=== PATIENT | female | born 1985 | race Caucasian/White ===

== ENCOUNTER 2019-03-26 13:57 | Emergency (ER) | payer OTHER, SELFPAY ==
[2019-03-26 14:02] VITALS: BP 120/70; PULSE 93; RESP 20; TEMP 36.6; O2SAT 99
--- NOTE | 2019-03-26 14:11 | ED.GENADULT ---
HPI - General Adult General Chief complaint: Upper Respiratory Infection Stated complaint: COUGH/SOB Time Seen by Provider: 03/26/19 14:13 Source: patient Mode of arrival: ambulatory Limitations: no limitations History of Present Illness HPI narrative: 33-year-old female patient presents to the [facility] with complaints of cold symptoms for the past week. Patient states that she was swabbed tested positive for influenza early last week. Patient states that she is now having chronic cough, coughing up sputum at times as well as some shortness of breath. Patient states she has tried taking [id number] Delsym which has helped with the cough at times. Related Data Home Medications Medication Instructions Recorded Confirmed dextromethorphan polistirex 10 ml PO Q12H PRN 03/26/19 03/26/19 [Delsym 12 hour] Allergies Allergy/AdvReac Type Severity Reaction Status Date / Time Sulfa (Sulfonamide Allergy Unknown Hives Verified 03/26/19 14:09 Antibiotics) Bumble Bee Allergy Unknown Swelling Uncoded 03/26/19 14:09 of Lip/Tongue/Throat Review of Systems Review of Systems: Narrative: CONSTITUTIONAL: Denies fever, chills, or sweats. EYES: Denies visual changes, redness, or discharge. ENT: Denies rhinorrhea, congestion, sore throat, or otalgia. CARDIOVASCULAR: Denies chest pain, palpitations, or edema. RESPIRATORY: Positive cough with dyspnea. GASTROINTESTINAL: Denies abdominal pain, nausea, vomiting, or diarrhea. GENITOURINARY: Denies dysuria or hematuria. SKIN: Denies rash or itching. MUSCULOSKELETAL: Denies back pain, joint pain, or myalgia. NEUROLOGIC: Denies headache, numbness, or weakness. PSYCHIATRIC: Denies anxiety or depression. [facility] Family History Family History Sibling Asthma Family history of arthritis Mother Family history of arthritis Social History Social History Smoking status: Never smoker Alcohol intake: current Comments At the time of my signature I agree with nursing past medical history, surgical, social, and family history. There is no relevant family history pertinent to the presenting complaint. Exam Narrative: Exam Narrative: GENERAL: Well-appearing, well-nourished, and in no acute distress. HEAD: Normocephalic, atraumatic. EYES: PERRLA and EOMI. ENT: Nares clear, no rhinorrhea or epistaxis. Mucous membranes moist. Posterior pharynx with some postnasal drip no tonsil enlargement no exudates or lesions present. Bilateral TMs are clear no erythema or foreign bodies in the canal. NECK: Supple. No lymphadenopathy CHEST: Clear to auscultation. No respiratory distress. Patient able talk in clear complete sentences. HEART: Regular rate and rhythm. No murmur heard. Normal peripheral pulses. ABDOMEN: Soft, nontender, nondistended, normal active bowel sounds. EXTREMITIES: Normal range of motion. No edema. SKIN: Warm, dry, no rash. NEURO: No focal deficits. Alert and oriented x3. Course Vital Signs Vital signs: Vital Signs Temperature 36.6 C 03/26/19 14:02 Pulse Rate 93 03/26/19 14:02 Respiratory Rate 20 03/26/19 14:02 Blood Pressure 120/70 03/26/19 14:02 Pulse Oximetry 99 03/26/19 14:02 Temperature 36.6 C 03/26/19 14:02 Pulse Rate 93 03/26/19 14:02 Respiratory Rate 20 03/26/19 14:02 Blood Pressure 120/70 03/26/19 14:02 Pulse Oximetry 99 03/26/19 14:02 Vital signs reviewed. Medical Decision Making Differential Diagnosis Differential Diagnosis: Differential diagnosis: Allergic rhinitis, chronic sinusitis, tonsillitis, acute sinusitis, infectious mononucleosis, seasonal influenza, pertussis, diphtheria, meningococcal disease, viral syndrome, viral bronchitis, RSV. Discussed with patient she most likely has some type of lingering bronchitis from her influenza that she had last week. Discussed with her that we will discharge he
== END 2019-03-26 14:25 | disposition home or self-care (01) ==
PROVIDERS: Emergency Provider Nurse Practitioner Family
DX: J06.9 Acute upper respiratory infection, unspecified (principal); R05 Cough
CPT/HCPCS: 99213; G0463

== ENCOUNTER 2020-09-21 16:05 | Emergency (ER) | payer OTHER, SELFPAY ==
[2020-09-21 16:10] VITALS: BP 133/87; PULSE 86; RESP 12; TEMP 36.8; O2SAT 100
--- NOTE | 2020-09-21 16:13 | ED.GENADULT ---
HPI - General Adult General Chief complaint: Skin/Abscess/Foreign Body Stated complaint: pos skin infection Source: patient Mode of arrival: ambulatory Limitations: no limitations History of Present Illness HPI narrative: 35 y/o female. PMHx Seasonal Allergies. Presents to [facility] today with acute complaints of 'possible skin infection' located to LT pointer finger cuticle, as well as her chin. Pt reports she thought the areas were just maybe mosquito bites after being outside. However, when she began scratching, the areas are now more red, tender, and with some yellow discharge. No fever, chills, myalgias. No additional areas of integumentary involvement. Non-diabetic. She is w/o additional acute c/o illness upon PE. Related Data Allergies Allergy/AdvReac Type Severity Reaction Status Date / Time Sulfa (Sulfonamide Allergy Unknown Hives Verified 09/21/20 16:13 Antibiotics) Bumble Bee Allergy Unknown Swelling Uncoded 09/21/20 16:13 of Lip/Tongue/Throat Review of Systems Review of Systems: CONSTITUTIONAL: Denies fever, chills, sweats. EYES: Denies visual changes, redness, discharge. ENT: Denies rhinorrhea, congestion, sore throat, otalgia. CARDIOVASCULAR: Denies chest pain, palpitations, edema. RESPIRATORY: Denies dyspnea, wheezing, cough GASTROINTESTINAL: Denies abdominal pain, nausea, vomiting, diarrhea. GENITOURINARY: Denies dysuria, hematuria, abnormal discharge SKIN: Denies rash or itching. With wounds located to RT pointe finger, chin. MUSCULOSKELETAL: Denies acute back pain, joint pain, or myalgia. NEUROLOGIC: Denies numbness, or focal weakness. PSYCHIATRIC: Denies anxiety or depression. All systems reviewed & are unremarkable except as noted in HPI and below PMFSH Family History Family History Sibling Asthma Family history of arthritis Mother Family history of arthritis Social History Social History Smoking status: Never smoker Alcohol intake: current Exam Narrative: GENERAL: This is a well-nourished, well-developed adult, in no apparent distress. HEAD: normocephalic, atraumatic. EYES: PERRL. Sclera clear/white. EARS: External ears normal, auditory canals clear and without drainage, TMs normal. NOSE: External nose normal. Positive Rhinorrhea, no obstruction, nares patent. THROAT: Mucous membranes moist, posterior pharynx clear. No exudates. NECK: Neck supple, non-tender without lymphadenopathy, masses or thyromegaly. CARDIOVASCULAR: Regular rate and rhythm without murmurs, gallops, or rubs. RESPIRATORY: Clear to auscultation. Breath sounds equal bilaterally. No wheezes, rales, or rhonchi. GASTROINTESTINAL: Abdomen soft, non-tender, nondistended. Bowel sounds are active. No guarding. SKIN: warm, intact. With erythema and soft tissue tenderness located to RT pointer finger, surrounding cuticle. There are 2 additional isolated areas located to lower chin. These areas are reddened and with minimal yellow discharge. No fluctuance to sites. No target lesions or necrosis. Surrounding tissue blanches well. No additional areas of integumentary involvement. NEURO: No focal neurologic deficits. EXTREMITIES: Negative. Course Vital Signs Vital signs: Vital Signs Temperature 36.8 C 09/21/20 16:10 Pulse Rate 86 09/21/20 16:10 Respiratory Rate 12 09/21/20 16:10 Blood Pressure 133/87 09/21/20 16:10 Pulse Oximetry 100 09/21/20 16:10 Temperature 36.8 C 09/21/20 16:10 Pulse Rate 86 09/21/20 16:10 Respiratory Rate 12 09/21/20 16:10 Blood Pressure 133/87 09/21/20 16:10 Pulse Oximetry 100 09/21/20 16:10 Medical Decision Making [facility] Narrative Medical decision making narrative: -Physical exam consistent with superficial cellulitic changes at affected sites. -Non-diabetic. -Start Augmentin BID X 10 days for soft tissue
== END 2020-09-21 16:26 | disposition home or self-care (01) ==
PROVIDERS: Emergency Provider Nurse Practitioner Adult Health
DX: L03.011 Cellulitis of right finger (principal); L03.211 Cellulitis of face
CPT/HCPCS: 99213; G0463